=== PATIENT | male | born 1965 | race Caucasian/White ===

== ENCOUNTER 2019-02-06 10:31 | Outpatient (CLI) | payer BC ==
[2019-02-06 17:38] LABS: #Eosinphils 0.2 thou/uL (0.0-0.7); #Lymphocytes 2.6 thou/uL (1.20-3.40); #Monocytes 0.6 thou/uL (0.11-0.59); #Neutrophils 5.2 thou/uL (1.40-6.50); %Basophils 0.4 % (0.0-1.0); %Eosinophils 2.6 % (0.0-10.0); %Lymphocytes 30.1 % (21.0-51.0); %Monocytes 6.4 % (0.0-10.0); %Neutrophils 60.5 % (42.0-75.0); Hemoglobin 14.2 g/dL (14.0-18.0); Mean Corpuscular HGB CONC 33.8 g/dL (32.0-36.0); Mean Corpuscular Hemoglobin 31.4 pg (27.0-31.0); Mean Platelet Volume 8.5 fL (7.4-10.4); Platelet Count 199 thou/uL (130-400); RBC Distribution Width 12.8 % (11.5-14.5); Red Blood Cell (RBC) Count 4.52 mill/uL (4.70-6.10); White Blood Cell (WBC) Count 8.6 thou/uL (4.8-10.8)
[2019-02-06 17:56] LABS: Anion Gap 12 mmol/L (10-20); BUN (Urea Nitrogen) 23 mg/dL (8.4-25.7); Calc. Creatinine Clearance 0 mL/min (70-130); Calcium 9.6 mg/dL (7.8-10.44); Carbon Dioxide 23 mmol/L (22-29); Chloride 105 mmol/L (98-107); Estimated GFR-MDRD Greater than 90; Glucose 77 mg/dL (70-105); Potassium 3.8 mmol/L (3.5-5.1); Sodium 136 mmol/L (136-145)
== END 2019-02-06 10:32 | disposition home or self-care (01) ==
LOC: LABBT 10:31
PROVIDERS: ATTEND Surgery
DX: Z01.812 Encounter for preprocedural laboratory examination (principal); K42.9 Umbilical hernia without obstruction or gangrene
CPT/HCPCS: 80048; 85025

== ENCOUNTER 2019-02-09 07:29 | Day surgery (SDC) | payer BC ==
[2019-02-06 17:10] VITALS: BMI 30.5
[2019-02-09] MEDS ORDERED: Bupivacaine/Epinephrine 0.25% 30 ML VIAL ONE (08:52)
[2019-02-09] MEDS ORDERED: Fentanyl 250 MCG/5 ML VIAL ONE (09:10)
[2019-02-09] MEDS ORDERED: Midazolam HCl 2 mg/2 ml Vial ONE (09:10)
[2019-02-09] MEDS ORDERED: Dexamethasone 20 MG/5 ML VIAL ONE (09:30)
[2019-02-09] MEDS ORDERED: PROPOFOL 200 MG/20 ML VIAL ONE (09:30)
[2019-02-09] MEDS ORDERED: Rocuronium Bromide 10 MG/ML (10ML VIAL) ONE (09:30)
[2019-02-09] MEDS ORDERED: Ondansetron PF 4 MG/2 ML Vial ONE (09:30)
[2019-02-09] MEDS ORDERED: Glycopyrrolate 0.2 MG/ML 5 ML SYRINGE ONE (09:30)
--- NOTE | 2019-02-10 11:18 | OP ---
DATE OF PROCEDURE: 02/09/2019 PROCEDURE PERFORMED: Umbilical hernia repair with preperitoneal mesh. PREOPERATIVE DIAGNOSIS: Umbilical hernia. POSTOPERATIVE DIAGNOSIS: Umbilical hernia. HISTORY: Mr. Price is a 53-year-old man with a long-standing umbilical hernia, which is minimally symptomatic, but enlarging. This was reducible, but quite large and repair with mesh was recommended. DESCRIPTION OF PROCEDURE: After informed consent was obtained and appropriate preoperative antibiotics administered, the patient was taken to the operating room. He was placed in supine position and general anesthesia administered. He was prepped and draped in a standard sterile fashion and local anesthesia infused to the skin and subcutaneous tissues at the level of the umbilicus. Periumbilical incision was made and dissection carried down to the hernia sac, which was dissected free of the subcutaneous tissues and traced down to the fascial defect. The fascia was cleared circumferentially and the hernia contents reduced back into the peritoneal cavity. A plane was created in the preperitoneal space immediately behind the fascia. The defect was 4 cm in diameter, so an 8 cm Ventralex patch was obtained. This was placed into the preperitoneal space and confirmed to be lying flat against the fascia. The fascial defect was then closed transversely, incorporating a central strap into the repair. The straps were trimmed down flush with the fascia and additional local anesthesia infused for postoperative pain control. The wound was irrigated and hemostasis verified. The subcutaneous tissues were reapproximated with [id number] 3-0 Monocryl suture and the skin was closed with running subcuticular 4-0 Monocryl suture. Dermabond was placed and once this was dry, a pressure dressing was placed. The patient was extubated and taken to Recovery in good condition. Estimated blood loss was minimal. There were no complications. There were no specimens. Job ID: [id number] [facility]
== END 2019-02-09 13:15 | disposition home or self-care (01) ==
LOC: SDC 07:29 → EEVIPCON 10:30 → SDC 13:15
PROVIDERS: ATTEND Surgery
PROC: 0WUF0JZ Supplement Abdominal Wall with Synthetic Substitute, Open Approach (ICD-10-PCS; principal; 2019-02-09)
DX: K42.9 Umbilical hernia without obstruction or gangrene (principal); M48.8X2 Other specified spondylopathies, cervical region; Z85.71 Personal history of Hodgkin lymphoma
CPT/HCPCS: C1781; J1100; J2250; J2405; J2704; J3010